=== PATIENT | female | born 1990 | race Caucasian/White ===

== ENCOUNTER 2016-09-05 10:01 | Emergency (ER) | payer OTHER ==
[~2016-09-05] VITALS: Ht 170.2 cm; Wt 62.1 kg
[2016-09-05] MEDS ORDERED: LEVOTHYROXINE25 MCG PO (11:50)
[2016-09-05 11:52] LABS: ABSOLUTE BASOPHIL COUNT 0 /CUMM (0.0-0.2); ABSOLUTE EOSINOPHIL COUNT 0 /CUMM (0.0-0.7); ABSOLUTE GRANULOCYTE CT 6.7 /CUMM (1.4-6.5); ABSOLUTE LYMPH COUNT 1.6 /CUMM (1.2-3.4); ABSOLUTE MONOCYTE COUNT 0.6 /CUMM (0.10-0.60); BASOPHIL % 0.3 % (0.0-2.0); EOSINOPHIL % 0.3 % (0-5); GRANULOCYTE % 74.9 % (42.2-75.2); HEMATOCRIT 42.8 % (37-47); MEAN CORPUSCULAR HGB 30.6 PG (27.0-31.0); MEAN CORPUSCULAR HGB CONC 34.3 G/DL (33.0-37.0); MEAN CORPUSCULAR VOLUME 89.3 FL (81.0-99.0); MEAN PLATELET VOLUME 7.4 FL (7.4-10.4); PLATELET COUNT 300 /CUMM (130-400); RBC DISTRIBUTION WIDTH 12.2 % (11.5-14.5); RED BLOOD CELL CT 4.79 /CUMM (4.20-5.40); WHITE BLOOD CELL COUNT 8.9 /CUMM (4.8-10.8)
--- NOTE | 2016-09-05 12:00 | ED GENERAL PEDIATRIC ---
History of Present Illness General Chief Complaint: Female Urogenital Problems Stated Complaint: ABD CRAMPING; 4 WKS Source: patient Exam Limitations: no limitations Vital Signs & Intake/Output Vital Signs & Intake/Output Vital Signs Date Time Temp Pulse Resp B/P B/P Pulse O2 O2 Flow FiO2 Mean Ox Delivery Rate 09/05 1323 100 16 121/64 100 Room Air 09/05 1146 98.8 09/05 1008 98.8 120 16 150/83 99 Room Air Allergies Coded Allergies: Iodinated Contrast Media - Oral and (UNKNOWN 09/05/16) IVP DYE MDX - Seafood (SEAFOOD) (RASH 09/22/11) Penicillins (UNKNOWN 09/05/16) iodine (UNKNOWN 09/05/16) nut - unspecified (UNKNOWN 09/05/16) Reconcile Medications Docusate Sodium (Colace) 100 MG CAPSULE 1 CAP PO BID PRN CONSTIPATION Levothyroxine Sodium 25 MCG TABLET 0.5 TAB PO QAM THYROID (Reported) Triage Note: PT STATES SHE IS HAVING CRAMPING ON HER LEFT SIDE THAT STARTED ABOUT 4 NIGHTS AGO. PT STATES SHE HAS NOT SEEN HER OBGYN YET AND SHE THINKS SHE IS 4 WEEKS . PT REPORTS THE PAIN WOKE HER FROM SLEEP LAST EVENING Triage Nurses Notes Reviewed? yes : Yes Patient currently breastfeeds: No HPI: This patient is a 25-year-old female with past medical history including bicornate uterus who presented to the emergency department today for evaluation of abdominal cramping times one week. The patient reported that she missed her period and because of the cramping, she took a test which was positive. She thinks that she is approximately 4 weeks' gestation. The patient reported that she is considered a high risk because of her [employer] history. She reported that she has been trying to get for a year. The patient reported that today the pain got worse. It caused her to vomit with associated nausea. The pain is located in her right lower back and radiates into her right lower abdomen and right groin. The patient reported that the pain was intermittent, but has been constant today. She also reported that she has always had trouble with constipation, but it has gotten worse recently causing her to strain. She used prune juice without any relief. She denied any diarrhea. She denied any fevers, chills, chest pain, or difficulty breathing. No urinary leading, urgency, frequency, or burning with urination. She denied any vaginal discharge or leakage of fluid. She denied any vaginal bleeding. (CORDELL LOPEZ PA-C) Past History Travel History Traveled to [place] past 21 day No Medical History Medical History: see below [employer]/Reproductive: bicornate uterus Surgical History Hx Contributory? No Psychosocial History Child's primary language? Upper Sorbian ETOH Use: denies use Illicit Drug Use: denies illicit drug use Family History Hx Contributory? No (CORDELL LOPEZ PA-C) Review of Systems Review of Systems Constitutional: Reports: no symptoms. EENTM: Reports: no symptoms. Respiratory: Reports: no symptoms. Cardiovascular: Reports: no symptoms. GI: Reports: see HPI. Genitourinary: Reports: see HPI. Musculoskeletal: Reports: see HPI. Skin: Reports: no symptoms. Neurological/Psychological: Reports: no symptoms. All Other Systems: Reviewed and Negative (CORDELL LOPEZ PA-C) Physical Exam Physical Exam General Appearance: no apparent distress, other (well-nourished, well-developed) Comments: Well-developed well-nourished person in no acute distress HEENT: Normal EENT exam, head normocephalic, moist mucous membranes Pupils equally round and reactive to light. Neck: Supple, no lymphadenopathy Back: Normal gait. Normal inspection. No CVA tenderness Respiratory: Chest nontender. No respiratory distress. Speaking in full sentences Abdomen: Soft and nondistended. Normoactive bowel sounds. No organomegaly. Nontender to palpation. No rebound or guarding. No McBurney's point tenderness. Negative Lr sign. Negative Rovsing sign. Extremity: Normal and equal pulses. Neuro: Alert oriented x3, cranial nerves II through XII grossly intact. Skin: No appreciable rash on exposed skin, skin is warm and dry. Psych: Mood and affect is normal Core Measures Severe Sepsis Present: No Septic Shock Present: No (CORDELL LOPEZ PA-C) Progress Differential Diagnosis: influenza, pyelonephritis, sepsis, UTI, , threatened miscarriage, ureterolithiasis, hydronephrosis, appendicitis, ovarian cyst, ovarian torsion Plan of Care: Orders Procedure Date/time Status URINE 09/05 1125 Complete URINALYSIS 09/05 1125 Complete HUMAN BETA HCG TITRE 09/05 1125 Complete COMPREHENSIVE METABOLIC PANEL 05/08 1126 Complete CBC WITHOUT DIFFERENTIAL 09/05 1125 Complete TYPE & SCREEN (NOT X-MATCH) 09/05 1125 Complete Laboratory Tests 09/05/16 1143: Urine Color STRAW, Urine Clarity CLEAR, Urine pH 6.0, Ur Specific Upper Tract 1.010, Urine Protein NEG, Urine Ketones NEG, Urine Nitrite NEG, Urine Bilirubin NEG, Urine Urobilinogen 0.2, Ur Leukocyte Esterase NEG, Ur Microscopic EXAM NOT REQUIRED, Urine Hemoglobin NEG, Urine Glucose NEG, Urine Test POSITIVE 09/05/16 1142: Anion Gap 14, Estimated GFR > 60, BUN/Creatinine Ratio 13.3, Glucose 96, Calcium 9.9, Total Bilirubin 0.6, AST 16, ALT 27, Alkaline Phosphatase 55, Total Protein 8.0, Albumin 4.7, Globulin 3.3, Albumin/Globulin Ratio 1.4, Beta HCG, Quant 466.8, CBC w Diff NO MAN DIFF REQ, RBC 4.79, MCV 89.3, MCH 30.6, RDW 12.2, MPV 7.4, Gran % 74.9, Lymphocytes % 18.2 L, Monocytes % 6.3, Eosinophils % 0.3, Basophils % 0.3, Absolute Granulocytes 6.7 H, Absolute Lymphocytes 1.6, Absolute Monocytes 0.6, Absolute Eosinophils 0, Absolute Basophils 0, PUBS MCHC 34.3 Diagnostic Imaging: Viewed by Me: Ultrasound. Discussed w/RAD: Ultrasound. Radiology Impression: PATIENT: ASHER VILLATORO PRESENT AGE: 25 PATIENT ACCOUNT NO: [id number] : 91 LOCATION: [facility] ORDERING PHYSICIAN: CORDELL LOPEZ PA-C SERVICE DATE: 09/05/16 EXAM TYPE: US - US-PELVIC KIMBALL; US-RENAL/KIDNEY; US-TRANSVAGINAL EXAMINATION: PELVIC ULTRASOUND. RENAL ULTRASOUND. RIGHT LOWER QUADRANT ABDOMINAL ULTRASOUND. CLINICAL INFORMATION: Question 4 week patient. Right lower groin pain. Evaluate for ectopic versus appendicitis versus kidney stone. COMPARISON: Pelvic ultrasound dated 01/21/2011. TECHNIQUE: A transvesical pelvic ultrasound was performed followed by a transvaginal exam to better evaluate the uterus and the ovaries, which were obscured on the transabdominal study by the bowel gas. A graded compression right lower quadrant abdominal ultrasound was also performed with real-time assessment by the reading radiologist. A bilateral renal ultrasound was performed. FINDINGS: PELVIC ULTRASOUND: Based on the patient's last menstrual period of 08/07/2016 4 week 1 day gestation as expected with an estimated date of delivery of 05/14/2017. The uterus is anteverted and anteflexed. The cervix is normal in length, measuring 3.2 cm. The endometrium is mildly thickened, measuring 1.7 cm in maximal diameter. No endometrial free fluid is seen and no definite gestational sac is identified. The right ovary measures 3.1 x 2.2 x 2.4 cm in size (8.5 mL volume) and demonstrates a 1.3 cm diameter mildly complicated cyst with thickened echogenic wall, likely representing a corpus luteum cyst. With color flow imaging, normal arterial and venous flow to the right ovary is demonstrated. There is a small volume of free fluid seen posterior to the right ovary. In the left adnexa, the left ovary is not discretely identified both on transabdominal and transvaginal exam. No suspicious left adnexal mass is seen. RIGHT LOWER QUADRANT ABDOMINAL ULTRASOUND: Greater compression ultrasound of the right lower quadrant revealed multiple normal peristalsing loops of bowel, which could be compressed easily. The appendix was not identified specifically. A small amount of free fluid was noted in the right lower quadrant, adjacent to the right ovary (see above). No other secondary signs of acute appendicitis are seen. The patient's abdomen felt soft and no guarding was appreciated while performing the exam. No focal adenopathy was noted in the right lower quadrant. RENAL ULTRASOUND: Kidneys bilaterally are normal in size and appearance. Right kidney measures 11.3 x 5.2 x 6.3 cm and left kidney 11.0 x 4.9 x 5.1 cm. Renal cortical thickness and echogenicity bilaterally is normal. No evidence of nephrolithiasis, focal renal mass or hydroureteronephrosis is seen. The bladder is partially distended and unremarkable. Urine jets are not visualized. IMPRESSION: 1. Slightly thickened endometrium is seen. No intrauterine gestational sac is identified. However, by the patient's last menstrual period, the patient is expected to be 4 weeks today and at this early stage, nonvisualization of a gestational sac may be normal. Would recommend close clinical correlation and serial beta hCG and serial ultrasound follow-up for further assessment of the . 2. Thickened cystic structures seen within the right ovary with a small volume of free fluid in the right adnexa. Findings may represent a ruptured ovarian cyst/involuting corpus luteum cyst. 3. Left ovary not visualized. 4. The appendix is not visualized in the right lower quadrant. However, as discussed above, no definite secondary signs of appendicitis are seen. Close clinical correlation is requested. If clinical suspicion remains high, additional imaging with MRI scan of the abdomen is recommended. 5. Normal kidneys with no evidence of nephrolithiasis or hydroureteronephrosis. DICTATED BY: SHANNON GUZMAN MD DATE/ TIME DICTATED:09/05/161333 REGIONAL ACCOUNT DIRECTOR:SYLWIA DATE/TIME TRANSCRIBED: 09/05/161333 CONFIDENTIAL, DO NOT COPY WITHOUT APPROPRIATE AUTHORIZATION. < Electronically signed in Other Vendor System> SIGNED BY: SHANNON GUZMAN MD 09/05/16 1349 Comments: 09/05/2016 2:09:37 PM: I was at the patient's bedside for reevaluation. She reported relief of her pain with IV Tylenol. Gestational sac was not visualized on ultrasound likely due to early gestational age. HCG titer 466.8. Likely ruptured ovarian cyst on the right based on imaging. I have paged this patient' s SEAMING INSPECTOR, Dr. Joceline Garcia, awaiting callback at this time. 09/05/2016 2:49:11 PM: Discussed this patient with on-call SEAMING INSPECTOR for Dr. Garcia. She would like the patient to call the office this week to schedule an appointment. (CORDELL LOPEZ PA-C) Departure Departure Disposition: HOME OR SELF CARE Condition: Stable Clinical Impression Primary Impression: Ruptured ovarian cyst Secondary Impressions: Positive test Referrals: LIBRADO IBARRA,JUDY Roe (PCP/Family) Additional Instructions: PLEASE CALL TO SCHEDULE A FOLLOW-UP APPOINTMENT WITH BOTH YOUR SEAMING INSPECTOR AND PRIMARY CARE PHYSICIAN; PLEASE CALL TODAY TO MAKE THESE APPOINTMENTS. YOU MAY TAKE OVER THE COUNTER TYLENOL FOR PAIN. REST. NO HEAVY LIFTING OR STRENUOUS ACTIVITY. COLASE TWICE A DAY FOR CONSTIPATION. RETURN TO THE EMERGENCY DEPARTMENT FOR ANY WORSENING SYMPTOMS OR CONCERNS. Departure Forms: Customer Survey General Discharge Information Prescriptions: Current Visit Scripts Docusate Sodium (Colace) 1 CAP PO BID PRN CONSTIPATION #20 CAP (CORDELL LOPEZ PA-C) PA/GAS REFRIGERATOR SERVICER Co-Sign Statement Statement: ED Attending supervision documentation- [X] I saw and evaluated the patient. I have also reviewed all the pertinent lab results and diagnostic results. I agree with the findings and the plan of care as documented in the PA's/GAS REFRIGERATOR SERVICER's documentation. [X] I have reviewed the ED Record and agree with the PA's/GAS REFRIGERATOR SERVICER's documentation. [] Additions or exceptions (if any) to the PAs/GAS REFRIGERATOR SERVICER's note and plan are summarized below: [] (LUDY IBARRA,ALVA)
--- NOTE | 2016-09-05 13:49 | ULTRASOUND REPORT ---
EXAMINATION: PELVIC ULTRASOUND. RENAL ULTRASOUND. RIGHT LOWER QUADRANT ABDOMINAL ULTRASOUND. CLINICAL INFORMATION: Question 4 week patient. Right lower groin pain. Evaluate for ectopic versus appendicitis versus kidney stone. COMPARISON: Pelvic ultrasound dated 01/21/2011. TECHNIQUE: A transvesical pelvic ultrasound was performed followed by a transvaginal exam to better evaluate the uterus and the ovaries, which were obscured on the transabdominal study by the bowel gas. A graded compression right lower quadrant abdominal ultrasound was also performed with real-time assessment by the reading radiologist. A bilateral renal ultrasound was performed. FINDINGS: PELVIC ULTRASOUND: Based on the patient's last menstrual period of 08/07/2016 4 week 1 day gestation as expected with an estimated date of delivery of 05/14/2017. The uterus is anteverted and anteflexed. The cervix is normal in length, measuring 3.2 cm. The endometrium is mildly thickened, measuring 1.7 cm in maximal diameter. No endometrial free fluid is seen and no definite gestational sac is identified. The right ovary measures 3.1 x 2.2 x 2.4 cm in size (8.5 mL volume) and demonstrates a 1.3 cm diameter mildly complicated cyst with thickened echogenic wall, likely representing a corpus luteum cyst. With color flow imaging, normal arterial and venous flow to the right ovary is demonstrated. There is a small volume of free fluid seen posterior to the right ovary. In the left adnexa, the left ovary is not discretely identified both on transabdominal and transvaginal exam. No suspicious left adnexal mass is seen. RIGHT LOWER QUADRANT ABDOMINAL ULTRASOUND: Greater compression ultrasound of the right lower quadrant revealed multiple normal peristalsing loops of bowel, which could be compressed easily. The appendix was not identified specifically. A small amount of free fluid was noted in the right lower quadrant, adjacent to the right ovary (see above). No other secondary signs of acute appendicitis are seen. The patient's abdomen felt soft and no guarding was appreciated while performing the exam. No focal adenopathy was noted in the right lower quadrant. RENAL ULTRASOUND: Kidneys bilaterally are normal in size and appearance. Right kidney measures 11.3 x 5.2 x 6.3 cm and left kidney 11.0 x 4.9 x 5.1 cm. Renal cortical thickness and echogenicity bilaterally is normal. No evidence of nephrolithiasis, focal renal mass or hydroureteronephrosis is seen. The bladder is partially distended and unremarkable. Urine jets are not visualized. IMPRESSION: 1. Slightly thickened endometrium is seen. No intrauterine gestational sac is identified. However, by the patient's last menstrual period, the patient is expected to be 4 weeks today and at this early stage, nonvisualization of a gestational sac may be normal. Would recommend close clinical correlation and serial beta hCG and serial ultrasound follow-up for further assessment of the . 2. Thickened cystic structures seen within the right ovary with a small volume of free fluid in the right adnexa. Findings may represent a ruptured ovarian cyst/involuting corpus luteum cyst. 3. Left ovary not visualized. 4. The appendix is not visualized in the right lower quadrant. However, as discussed above, no definite secondary signs of appendicitis are seen. Close clinical correlation is requested. If clinical suspicion remains high, additional imaging with MRI scan of the abdomen is recommended. 5. Normal kidneys with no evidence of nephrolithiasis or hydroureteronephrosis.
[2016-09-05] MEDS ORDERED: COLACE100 M1 PO (14:39)
[2016-09-05 15:06] VITALS: BP 120/65
== END 2016-09-05 15:07 ==
LOC: ERH 10:01
PROVIDERS: Physician Assistant
DX: O26.91 Pregnancy related conditions, unspecified, first trimester (principal); N83.201 Unspecified ovarian cyst, right side
CPT/HCPCS: 76775; 81003; 81025; 96374; J0131

== ENCOUNTER 2018-01-25 06:50 | Emergency (ER) | payer OTHER ==
[~2018-01-25] VITALS: Ht 170.2 cm; Wt 63.5 kg
[~2018-01-25 06:50] MED LIST: COLACE100 M1 PO; LEVOTHYROXINE25 MCG PO
[2018-01-25 06:57] VITALS: BP 129/86
[2018-01-25] MEDS ORDERED: ESCITALOPRAM OX10 MG PO (07:52)
--- NOTE | 2018-01-25 08:12 | ED EYE COMPLAINT ---
History of Present Illness General Chief Complaint: Eye Problems Stated Complaint: "UM I HAVE ONE DILATED EYE" Source: patient Exam Limitations: no limitations Vital Signs & Intake/Output Vital Signs & Intake/Output Vital Signs Date Time Temp Pulse Resp B/P B/P Pulse O2 O2 Flow FiO2 Mean Ox Delivery Rate 01/25 0657 97.6 110 18 129/86 98 Room Air Allergies Coded Allergies: Iodinated Contrast- Oral and IV Dye (IODINATED CONTRAST MEDIA - ORAL AND) ( UNKNOWN 09/05/16) IVP DYE Penicillins (UNKNOWN 09/05/16) iodine (UNKNOWN 09/05/16) nut - unspecified (UNKNOWN 09/05/16) Uncoded Allergies: SEAFOOD (RASH 01/25/18) Reconcile Medications Escitalopram Oxalate 10 MG TABLET 1.5 TAB PO DAILY MENTAL HEALTH (Reported) Triage Note: PT COMING IN FROM HOME STATING THAT RIGHT EYE IS DILATED MORE THAN LEFT EYE. RIGHT EYE IS SLIGHTLY MORE DILATED THAN LEFT EYE AT THIS TIME. PUPILS REACTIVE TO LIGHT. PT DENIES BLURRY VISION. PT C/O PRESSURE IN THE RIGHT EYE. PT STATES SHE SAW HER RANCH HAND SUPERVISOR YESTERDAY AND SHE WAS TOLD TO FOLLOW UP WITH HER PMD. PT STATES "I CAME HERE BECAUSE I WAS ANXIOUS ABOUT IT." Triage Nurses Notes Reviewed? 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 Patient noticed this approximately 3 days ago. It is associated with high anxiety. She noticed that her right eye pupil was larger than her left. She denies any visual deficits. She denies any headache, nausea, vomiting, focal weakness. Patient was seen by an helicopter pilot yesterday and instructed to follow-up with her primary care provider. On last imaging studies, there is no noted pituitary cyst. Last study was 2 years ago. Past History Travel History Traveled to [place] past 21 day No Medical History Any Pertinent Medical History? 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 No Review of Systems Review of Systems Constitutional: Denies: no symptoms. Eyes: Reports: see HPI. Ear: Denies: no symptoms. Mouth: Denies: no symptoms. Throat: Denies: no symptoms. Respiratory: Denies: no symptoms. Cardiovascular: Denies: no symptoms. GI: Denies: no symptoms. Genitourinary: Denies: no symptoms. Musculoskeletal: Denies: no symptoms. Skin: Denies: no symptoms. Neurological/Psychological: Reports: see HPI. Hematologic/Endocrine: Denies: no symptoms. All Other Systems: Reviewed and Negative Physical Exam General Appearance: no apparent distress, alert, awake, anxious General Inspection: normal inspection Eyelid: normal inspection Conjunctiva/Sclera: normal inspection EOM: intact Pupil: Right pupil 7.5 mm, Left 7.0 mm General Inspection: normal inspection Physical Exam Head: atraumatic, normal appearance Neurologic/Psych: no motor/sensory deficits (anisocoria), awake, alert Skin: intact Progress Differential Diagnosis: anisocoria Plan of Care: Offered CT Sella but patient preferred to wait at this time. She has had MRI at [facility] in the past. There are no other gross neurologic abnormalities. Departure Departure Disposition: HOME OR SELF CARE Condition: Stable Clinical Impression Primary Impression: Pupil asymmetry Referrals: Annelise IBARRA,Raffy Roe (PCP/Family) Additional Instructions: Return to the emergency department if you develop visual deficits, visual loss, or other concerning symptoms. Departure Forms: Customer Survey General Discharge Information
== END 2018-01-25 08:12 ==
LOC: ERH 06:50
DX: H57.00 Unspecified anomaly of pupillary function (principal)
CPT/HCPCS: 99282